=== PATIENT | female | born 1980 | race Hispanic/Latino ===

== ENCOUNTER 2022-03-31 18:21 | Inpatient (IN) | payer OTHER ==
[~2022-03-31] VITALS: Ht 175.3 cm; Wt 83.5 kg
[2022-03-31 20:20] LABS: APPEARANCE,URINE CLEAR (CLEAR); BILIRUBIN,URINE NEGATIVE (NEGATIVE); COLOR,URINE YELLOW (YELLOW); GLUCOSE, URINE (UA) NEGATIVE (NEGATIVE); KETONES,URINE NEGATIVE (NEGATIVE); LEUKOCYTE ESTERASE ,URINE NEGATIVE Leu/uL (NEGATIVE); NITRATE,URINE NEGATIVE (NEGATIVE); OCCULT BLOOD,URINE MODERATE (NEGATIVE); PROTEIN,URINE 20 mg/dL (NEGATIVE); UROBILINOGEN,URINE 3 mg/dL (0.2-1.0)
[2022-03-31 20:24] LABS: BACTERIA,URINE RARE /HPF (None Seen); MUCUS,URINE RARE LPF (None Seen); RBC,URINE 51-100 /HPF (0-1); SQUAMOUS EPITHELIAL CELL,UR RARE /HPF (0-2)
[2022-03-31 20:26] LABS: HCG,QUALITATIVE URINE NEGATIVE (NEGATIVE)
[2022-03-31] MEDS ORDERED: 0.9%NACL 1000ML 1,000 ML IV ONE (20:30)
[2022-03-31] MEDS ORDERED: MORPHINE 4 MG SYG IM ONE (20:30)
[2022-03-31] MEDS ORDERED: ONDANSETRON 4MG INJ IVP ONE (20:30)
[2022-03-31 20:41] LABS: BASOPHILS % (AUTO) 0.5 % (0.0-5.0); LYMPHOCYTES % (AUTO) 4.1 % (21.0-51.0); MEAN CORPUSCULAR HEMOGLOBIN 22.8 pg (27.0-33.0); MEAN CORPUSCULAR VOLUME 75.9 fL (79-99); NEUTROPHILS % (AUTO) 90.9 % (40.0-77.0); PLATELET COUNT (AUTO) 661 K/uL (130-400); RED BLOOD CELL COUNT(AUTO) 4.61 MIL/uL (4.00-5.50); RED CELL DISTRIBUTION WIDTH 17.3 % (11.0-15.5); WHITE BLOOD COUNT (AUTO) 19.1 K/uL (4.8-10.8)
[2022-03-31 20:49] LABS: CREATININE 0.8 mg/dL (0.5-1.5); POTASSIUM 3.6 mmol/L (3.5-5.1)
[2022-03-31 20:54] LABS: ALBUMIN 3.6 g/dL (3.5-5.0); TOTAL PROTEIN, SERUM 8.5 g/dL (6.0-8.3)
[2022-03-31] MEDS ORDERED: ZOSYN 3.375GM +NS 50ML IV ONE (22:30)
[2022-03-31 22:45] LABS: INR 0.96 (0.85-1.15); PROTHROMBIN TIME 10.5 SEC (9.6-11.6)
[2022-03-31 22:46] LABS: PARTIAL THROMBOPLASTIN TIME 25.6 SEC (26.3-35.5)
[2022-04-01] MEDS ORDERED: GUAIFENESIN-DM 200/20 MG 10 ML PO PRN
[2022-04-01] MEDS ORDERED: LACTULOSE 20 GM/30 ML UDCUP PO PRN
[2022-04-01] MEDS ORDERED: NITROGLYCERIN 0.4 MG SL TAB SL PRN
[2022-04-01] MEDS ORDERED: MORPHINE 2 MG SYG IV PRN
[2022-04-01] MEDS ORDERED: ACETAMINOPHEN 325 MG TAB PO PRN
[2022-04-01] MEDS ORDERED: MAG/ALUM/SIMETH 30 ML UDCUP PO PRN
[2022-04-01] MEDS ORDERED: ONDANSETRON 4MG INJ IV PRN
[2022-04-01] MEDS ORDERED: MORPHINE 4 MG SYG IV PRN
[2022-04-01] MEDS: 0.9%NACL 1000ML 1,000 ML IV SCH ×3 (00:16→23:46)
[2022-04-01 04:37] VITALS: BP 136/75
[2022-04-01] MEDS: ZOSYN 3.375GM+NS 50ML 50 ML IV SCH ×3 (05:19→20:50)
[2022-04-01 07:30] VITALS: BP 141/69
[2022-04-01 08:00] LABS: BASOPHILS % (AUTO) 0.5 % (0.0-5.0); EOSINOPHILS % (AUTO) 0.1 % (0.0-8.0); HEMATOCRIT 35.3 % (36-48); LYMPHOCYTES % (AUTO) 9.2 % (21.0-51.0); MEAN CORPUSCULAR HEMOGLOBIN 22.9 pg (27.0-33.0); MEAN CORPUSCULAR HGB CONC 29.2 g/dL (32.0-36.0); MEAN CORPUSCULAR VOLUME 78.4 fL (79-99); MONOCYTES % (AUTO) 5.8 % (3.0-13.0); NEUTROPHILS % (AUTO) 83.9 % (40.0-77.0); PLATELET COUNT (AUTO) 607 K/uL (130-400); RED CELL DISTRIBUTION WIDTH 17.5 % (11.0-15.5); WHITE BLOOD COUNT (AUTO) 14.8 K/uL (4.8-10.8)
[2022-04-01 08:06] LABS: CREATININE 0.7 mg/dL (0.5-1.5); POTASSIUM 3.7 mmol/L (3.5-5.1)
[2022-04-01 08:10] LABS: ALBUMIN 3.2 g/dL (3.5-5.0); TOTAL PROTEIN, SERUM 7.9 g/dL (6.0-8.3)
[2022-04-01] MEDS: PANTOPRAZOLE 40 MG/VIAL IVP SCH (09:08)
[2022-04-01 11:20] VITALS: BP 133/74
[2022-04-01 12:35] LABS: AMYLASE 32 U/L (25-115); LIPASE 146 U/L (114-286)
[2022-04-01 15:43] VITALS: BP 118/68
[2022-04-01 19:52] VITALS: BP 119/73
[2022-04-01 23:44] VITALS: BP 109/66
[2022-04-02] VITALS (14 sets, daily range): BP systolic 111–142; BP diastolic 62–84
[2022-04-02 04:13] LABS: BASOPHILS % (AUTO) 0.6 % (0.0-5.0); EOSINOPHILS % (AUTO) 0.4 % (0.0-8.0); HEMATOCRIT 31.3 % (36-48); LYMPHOCYTES % (AUTO) 21.7 % (21.0-51.0); MEAN CORPUSCULAR HEMOGLOBIN 22.4 pg (27.0-33.0); MEAN CORPUSCULAR HGB CONC 29.4 g/dL (32.0-36.0); MEAN CORPUSCULAR VOLUME 76.3 fL (79-99); MONOCYTES % (AUTO) 7.1 % (3.0-13.0); NEUTROPHILS % (AUTO) 69.8 % (40.0-77.0); PLATELET COUNT (AUTO) 571 K/uL (130-400); RED CELL DISTRIBUTION WIDTH 17.8 % (11.0-15.5); WHITE BLOOD COUNT (AUTO) 9.3 K/uL (4.8-10.8)
[2022-04-02 04:30] LABS: ALBUMIN 2.9 g/dL (3.5-5.0); CREATININE 0.8 mg/dL (0.5-1.5); MAGNESIUM 2.2 mg/dL (1.80-2.40); POTASSIUM 3.5 mmol/L (3.5-5.1)
[2022-04-02] MEDS: ZOSYN 3.375GM+NS 50ML 50 ML IV SCH ×3 (05:27→21:52)
[2022-04-02] MEDS: PANTOPRAZOLE 40 MG/VIAL IVP SCH (08:43)
[2022-04-02] MEDS ORDERED: IOHEXOL-350 50ML VIAL IV ONE (10:42)
[2022-04-02] MEDS: 0.9%NACL 1000ML 1,000 ML IV SCH ×2 (10:52→10:57)
[2022-04-02] MEDS ORDERED: PROPOFOL 10 MG/ML 20ML VIAL IV ONE (11:49)
[2022-04-02] MEDS ORDERED: SUCCINYLCHOLINE 200MG/10ML SYR ONE (11:49)
[2022-04-02] MEDS ORDERED: GLUCAGON 1MG KIT 1 MG ML ONE ×2 (12:19→12:20)
[2022-04-03] MEDS: 0.9%NACL 1000ML 1,000 ML IV SCH ×3 (00:20→22:54)
[2022-04-03 04:10] VITALS: BP 114/73
[2022-04-03 05:19] LABS: ALBUMIN 2.6 g/dL (3.5-5.0); BILIRUBIN,DIRECT 2.8 mg/dL (0.0-0.3); TOTAL PROTEIN, SERUM 6.8 g/dL (6.0-8.3)
[2022-04-03] MEDS: ZOSYN 3.375GM+NS 50ML 50 ML IV SCH ×3 (05:29→21:17)
[2022-04-03 07:14] VITALS: BP 119/74
[2022-04-03] MEDS: PANTOPRAZOLE 40 MG/VIAL IVP SCH (08:11)
[2022-04-03 11:47] VITALS: BP 128/76
[2022-04-03 16:14] VITALS: BP 116/76
[2022-04-03 19:18] VITALS: BP 122/77
[2022-04-03 22:39] VITALS: BP 123/75
[2022-04-04] VITALS (23 sets, daily range): BP systolic 119–155; BP diastolic 57–91
[2022-04-04 03:37] LABS: BASOPHILS % (AUTO) 0.9 % (0.0-5.0); EOSINOPHILS % (AUTO) 1.1 % (0.0-8.0); HEMATOCRIT 29.7 % (36-48); LYMPHOCYTES % (AUTO) 19.9 % (21.0-51.0); MEAN CORPUSCULAR HGB CONC 30.3 g/dL (32.0-36.0); MEAN CORPUSCULAR VOLUME 75.8 fL (79-99); NEUTROPHILS % (AUTO) 70.6 % (40.0-77.0); PLATELET COUNT (AUTO) 549 K/uL (130-400); RED BLOOD CELL COUNT(AUTO) 3.92 MIL/uL (4.00-5.50); WHITE BLOOD COUNT (AUTO) 8.9 K/uL (4.8-10.8)
[2022-04-04 03:55] LABS: ALBUMIN 2.6 g/dL (3.5-5.0); CREATININE 0.7 mg/dL (0.5-1.5); TOTAL PROTEIN, SERUM 6.7 g/dL (6.0-8.3)
[2022-04-04 03:56] LABS: POTASSIUM 2.9 mmol/L (3.5-5.1)
[2022-04-04] MEDS ORDERED: LIDOCAINE HCL-MPF 1% 2ML VIAL IV PRN (04:30)
[2022-04-04] MEDS: ZOSYN 3.375GM+NS 50ML 50 ML IV SCH ×3 (04:54→20:27)
[2022-04-04] MEDS: POTASSIUM CHLORIDE 20MEQ/100ML 100 ML IV PRN ×2 (05:21→08:32)
[2022-04-04] MEDS ORDERED: LIDOCAINE HCL 1% 20 ML VIAL ONE (06:49)
[2022-04-04] MEDS ORDERED: BUPIVACAINE/PF 0.5% 30ML VIAL ONE (06:49)
[2022-04-04] MEDS: PANTOPRAZOLE 40 MG/VIAL IVP SCH (08:32)
[2022-04-04] MEDS ORDERED: LACTATED RINGERS 1000ML 1,000 ML IV ONE (09:18)
[2022-04-04] MEDS ORDERED: LIDOCAINE PF 100MG/5ML (2%) SYRINGE 5ML ONE (09:36)
[2022-04-04] MEDS ORDERED: MIDAZOLAM HCL 1 MG/ML 2ML VIAL ONE (09:36)
[2022-04-04] MEDS ORDERED: FENTANYL CITRATE PF 50 MCG/1 ML 5ML AMP IV ONE (09:37)
[2022-04-04] MEDS ORDERED: PROPOFOL 10 MG/ML 20ML VIAL IV ONE (09:37)
[2022-04-04] MEDS ORDERED: ROCURONIUM 10MG/1ML SYR 10 MG/ML ML ONE ×2 (09:37→10:53)
[2022-04-04] MEDS ORDERED: ROPIVACAINE 0.5% 5MG/ML 30ML IJ ONE (09:38)
[2022-04-04] MEDS ORDERED: DEXAMETHASONE SOD PHOSPHATE 10MG/ML 1ML VIAL ONE (09:38)
[2022-04-04] MEDS ORDERED: ONDANSETRON 4MG INJ ONE (09:56)
[2022-04-04] MEDS ORDERED: BUPIVACAINE/PF 0.5% 30ML VIAL INJ ONE (10:28)
[2022-04-04] MEDS ORDERED: LIDOCAINE HCL 1% 20 ML VIAL MISC ONE (10:28)
[2022-04-04] MEDS: 0.9%NACL 1000ML 1,000 ML IV SCH (17:47)
[2022-04-05] MEDS: 0.9%NACL 1000ML 1,000 ML IV SCH (03:19)
[2022-04-05 04:00] VITALS: BP 134/84
[2022-04-05] MEDS: ZOSYN 3.375GM+NS 50ML 50 ML IV SCH (05:01)
[2022-04-05 06:50] LABS: ALBUMIN 2.7 g/dL (3.5-5.0); BILIRUBIN,DIRECT 0.5 mg/dL (0.0-0.3); TOTAL PROTEIN, SERUM 6.9 g/dL (6.0-8.3)
[2022-04-05 07:17] VITALS: BP 132/80
[2022-04-05] MEDS ORDERED: LEVO-70 PO (07:57)
[2022-04-05] MEDS: PANTOPRAZOLE 40 MG/VIAL IVP SCH (09:09)
[2022-04-05 12:13] VITALS: BP 123/76
[2022-04-05 16:39] VITALS: BP 125/83
== END 2022-04-05 18:00 | disposition home or self-care (01) | DRG 417 ==
LOC: EDH 18:21 → EDHIP 18:22 → WSH 04-01 04:35
PROVIDERS: ADMIT Hospitalist; ATTEND Hospitalist
PROC: 0FC98ZZ Extirpation of Matter from Common Bile Duct, Via Natural or Artificial Opening Endoscopic (ICD-10-PCS; 2022-04-02)
PROC: BF131ZZ Fluoroscopy of Gallbladder and Bile Ducts using Low Osmolar Contrast (ICD-10-PCS; 2022-04-02)
PROC: 0FT44ZZ Resection of Gallbladder, Percutaneous Endoscopic Approach (ICD-10-PCS; principal; 2022-04-04 09:36)
DX: K80.62 Calculus of gallbladder and bile duct with acute cholecystitis without obstruction (principal); E43 Unspecified severe protein-calorie malnutrition; E87.1 Hypo-osmolality and hyponatremia; Z20.822 Contact with and (suspected) exposure to COVID-19; K59.00 Constipation, unspecified; K66.0 Peritoneal adhesions (postprocedural) (postinfection)
CPT/HCPCS: 36415; 43264; 43274; 74018; 74176; 74181; 74328; 74330; 76705; 80053; 80076; 81001; 81025; 82150; 83605; 83690; 83735; 85025; 85610; 85730; 87040; 87077; 87186; 87635; 96374; 96375; A4606; C1769; C1773; C2617; C9113; C9803; G0378; J0330; J1100; J1610; J2001; J2250; J2270; J2405; J2543; J2704; J2795; J3010; J3480; J3490; J7030; J7120; Q9967